=== PATIENT | male | born 1970 | race Caucasian/White ===

== ENCOUNTER 2019-03-23 09:14 | Emergency (ER) | payer OTHER, BC ==
[2019-03-23 09:58] VITALS: TEMP 98.1
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
--- NOTE | 2019-03-23 10:42 | XR ---
Lumbosacral spine HISTORY: Trauma and pain 5 views of lumbosacral spine There is a slight levoscoliosis centered at the mid lumbar spine. There is multilevel spondylosis. No evident spondylolysis. Loss of disc height is present at intervertebral levels, vacuum phenomenon pr esent at L4-5 and L5-S1. Sclerosis present in the posterior elements of the lower lumbar spine. Lumba r vertebral bodies show preserved height and bone mineralization. Atherosclerotic vascular calcificat ions present in the aortoiliac distribution. IMPRESSION: No acute fracture or subluxation. Degenerative disc disease and facet arthropathy.
[2019-03-23] MEDS ORDERED: ACET/COD 300 MG/30 MG STARTER PACK 6 TAB BTL PO STA (11:09)
[2019-03-23 11:22] VITALS: BP 112/80; PULSE 80; RESP 18
== END 2019-03-23 11:19 | disposition home or self-care (01) ==
LOC: EC 09:14
DX: M54.5 Low back pain (principal); M47.816 Spondylosis without myelopathy or radiculopathy, lumbar region; F17.200 Nicotine dependence, unspecified, uncomplicated; V48.5XXA Car driver injured in noncollision transport accident in traffic accident, initial encounter; Y93.89 Activity, other specified; Y92.410 Unspecified street and highway as the place of occurrence of the external cause
CPT/HCPCS: 72110; 99283

== ENCOUNTER → 2019-04-15 | Outpatient (CLI) | payer BC ==
[2019-04-15 11:17] LABS: HGB 16.4 gm/dL (13.0-17.5); MCH 29.5 pg (25.0-35.0); MCHC 32.8 g/dL (31.0-37.0); MCV 90.1 fL (80.0-100.0); Mean Platelet Volume 8.3; Platelet Count 292 k/uL (150-450); RBC 5.55 m/uL (4.30-5.90); RDW 12.6 % (11.5-15.5); WBC 7.5 k/uL (3.8-10.6)
[2019-04-15 16:45] LABS: African American GFR (CKD) 92.8 (60.0-200.0); Albumin 4.6 g/dL (3.80-4.90); Albumin/Globulin Ratio 2.56 (1.60-3.17); Anion Gap 6.5 mmol/L (4.00-12.00); BUN/Creat Ratio 21.82 Ratio (12.00-20.00); Calcium 9.5 mg/dL (8.7-10.3); Carbon Dioxide 24.5 mmol/L (21.6-31.8); Chol/HDL Ratio 4.4; Globulin 1.8 g/dL (1.6-3.3); LDL Cholesterol,Calculated 129.8 mg/dL (0.0-131.0); Non-African American GFR(CKD) 80.1 (60.0-200.0); Potassium 4.7 mmol/L (3.5-5.5); Total Bilirubin 0.4 mg/dL (0.2-1.2); Total Protein 6.4 g/dL (6.2-8.2); VLDL Calculation 30.2 mg/dL (5.00-40.00)
== END | disposition home or self-care (01) ==
LOC: LABWHC1 10:28
PROVIDERS: ATTEND Internal Medicine Cardiovascular Disease
DX: E78.2 Mixed hyperlipidemia (principal); I10 Essential (primary) hypertension
CPT/HCPCS: 36415; 80053; 80061; 85027

== ENCOUNTER → 2019-04-15 | Outpatient (CLI) | payer BC ==
--- NOTE | 2019-04-15 13:13 | ECHOS ---
STRESS ECHOCARDIOGRAM DATE OF SERVICE: 04/15/2019 INDICATIONS: Chest pain. MEDICATIONS: BASELINE HEART RATE: 69 BASELINE BLOOD PRESSURE: 109/61 MAXIMUM HEART RATE: 157 MAXIMUM BLOOD PRESSURE: 162/78 85% MPHR: 148 100% MPHR: 174 METS: 12.1 MAXIMUM STAGE REACHED: IV TOTAL EXERCISE TIME: 12 minutes CLINICAL INFORMATION: The patient was exercised for a total period of 12 minutes. A peak heart rate of 157 was achieved. Maximum blood pressure 162/78 mmHg was noted. The patient did not complain of any chest pain during the test. Resting EKG shows normal sinus rhythm with normal VA interval and QRS duration and normal ST-T waves. Occasional PVCs were noted. No ST-segment depression suggestive of ischemia was noted. In the postexercise period again, occasional PVCs were noted and T-wave inversions in the inferolateral leads were noted. The stress echocardiographic study shows normal wall motion and function in the resting stage. In the immediate postexercise period, there was a suggestion of apical hypokinesia and anterolateral hypokinesia. FINAL IMPRESSION: 1. This stress echocardiographic study shows evidence of suggestion of apical and anterolateral hypokinesia in the immediate postexercise period suggestive of ischemia. 2. EKG portion of the stress test shows T-wave inversions in the recovery period in the inferolateral leads suggestive of ischemia. 3. Patient's exercise tolerance is normal. 4. Patient did not complain of any chest pain during the test. MMSTEVE / WILLIAMN: [id number] /
== END | disposition home or self-care (01) ==
LOC: RADNMMAIN 08:58
PROVIDERS: ATTEND Family Medicine
DX: R94.31 Abnormal electrocardiogram [ECG] [EKG] (principal); R07.89 Other chest pain
CPT/HCPCS: 93351

== ENCOUNTER 2019-04-22 10:58 | Day surgery (SDC) | payer BC ==
[~2019-04-22 10:58] MED LIST: ALPRAZolam 0.25 MG TAB PO PRN; ALPRAZolam 0.5 MG TAB PO PRN; ASPIRIN 325 MG TAB PO STA; ATORVASTATIN 80 MG TAB PO STA; NITROGLYCERIN SL TABS 0.4 MG TAB SUBLINGUAL PRN; SODIUM CHLORIDE 0.9% 1,000 ML in EMPTY BAG 1 BAG IV ONE
[2019-04-22 11:17] VITALS: RESP 16
[2019-04-22] MEDS ORDERED: VERAPAMIL 2.5 MG/ML 2 ML AMP ONE (12:40)
[2019-04-22] MEDS ORDERED: LIDOCAINE 1% INJ 10MG/ML (20 ML MDV) ONE (12:40)
[2019-04-22] MEDS ORDERED: HEPARIN SODIUM 1,000 UN/ML (10ML VL) ONE (12:40)
[2019-04-22] MEDS ORDERED: LIDOCAINE 1% INJ 10MG/ML (20 ML MDV) SQ ONE (13:11)
[2019-04-22] MEDS ORDERED: MIDAZOLAM 2 MG/2 ML VIAL IV ONE (13:11)
[2019-04-22] MEDS ORDERED: VERAPAMIL SYRINGE (5 MG/10 ML) INTRAARTER ONE (13:13)
[2019-04-22] MEDS ORDERED: HYDROmorphone 1 MG/ML 1 ML SYRINGE ONE (13:16)
[2019-04-22] MEDS: HYDROmorphone 1 MG/ML 1 ML SYRINGE IVP ONE ×2 (13:17→13:26)
[2019-04-22] MEDS ORDERED: PRASUGREL 10 MG TAB ONE (13:25)
[2019-04-22] MEDS ORDERED: BIVALIRUDIN 250 MG in SODIUM CHLORIDE 0.9% 36 ML IV ONE (13:25)
[2019-04-22] MEDS ORDERED: BIVALIRUDIN BOLUS 250 MG/50 ML IV ONE (13:25)
[2019-04-22] MEDS ORDERED: PRASUGREL 10 MG TAB PO ONE (13:26)
[2019-04-22] MEDS ORDERED: NITROGLYCERIN 1000MCG/10ML SYRINGE INTRACORON ONE (13:29)
[2019-04-22] MEDS ORDERED: IOPAMIDOL-370 125ML BTL INJ ONE (13:39)
[2019-04-22] MEDS ORDERED: RX INFO: IV CONTRAST WAS GIVEN 1 EACH MISC MISCELLANE PRN (13:52)
[2019-04-22] MEDS ORDERED: ATROPINE SULFATE 0.1 MG/ML 10ML SYRINGE IV PRN (13:52)
[2019-04-22] MEDS ORDERED: MAG HYDROX/AL HYDROX/SIMETH 30 ML CUP PO PRN (13:52)
[2019-04-22] MEDS ORDERED: NITROGLYCERIN SL TABS 0.4 MG TAB SUBLINGUAL PRN (13:52)
[2019-04-22] MEDS ORDERED: ZOLPIDEM 5 MG TAB PO PRN (13:52)
[2019-04-22] MEDS ORDERED: SODIUM CHLORIDE 0.9% 1,000 ML IV SCH (14:00)
[2019-04-22 14:50] VITALS: BMI 27.6
[2019-04-22] MEDS: NICOTINE 21MG/24HR PATCH TRANSDERM SCH (15:52)
--- NOTE | 2019-04-22 17:27 | CC ---
CARDIAC CATHETERIZATION REPORT DATE OF PROCEDURE: 04/22/2019 PERFORMING PHYSICIAN: Asael Felix M.D. PROCEDURES PERFORMED: 1. Selective right and left coronary angiogram. 2. Left heart catheterization. 3. Successful stenting of the proximal left anterior descending artery using 4.0 x 28 mm Xience drug-eluting stent with an excellent angiographic result and reduction of stenosis from 99% to 0%. INDICATION: This is a very pleasant 48-year-old gentleman with a history of hypertension as well as dyslipidemia who was experiencing symptoms of chest discomfort and underwent a stress test that came in to be abnormal. Because of that, a heart catheterization was advised. APPROACH: Right radial artery. COMPLICATIONS: None. LEVEL OF SEDATION: Moderate, with sedation length of 37 minutes. PROCEDURE DESCRIPTION: After obtaining informed consent, the patient was brought to the cardiac laboratory manager. The right radial artery was cannulated using micropuncture technique. The micropuncture wire passed easily. Then I placed a 6-Armenian sheath in the right radial artery. After that, I did give the patient 2 mg of verapamil IA without heparin. Subsequently I did selective right and left coronary angiogram with JR4 and JL3.5 catheters. Left heart catheterization was performed using a 6-Armenian pigtail catheter. After that I did intervene on the LAD; please see separate paragraph for that. SELECTIVE CORONARY ANGIOGRAM: 1. Right coronary artery is a large-caliber vessel and it is a dominant vessel. The RCA appeared to have mild disease only in the mid portion. Distally it bifurcates into PDA and PLV branches. Both appeared to be angiographically normal. 2. The left main is angiographically normal. It bifurcates into LCX and LAD. 3. The LCX is a large-caliber vessel. It is a nondominant vessel. The LCX is angiographically normal and in the proximal portion gives rise to a large OM branch which appeared to be angiographically normal. 4. The LAD. The proximal LAD has eccentric lesion that appeared to be in the range of 50% to 60%. The mid LAD has another tight lesion that appeared to be in the range of 99.9%. The LAD distally appeared to be angiographically normal. HEMODYNAMICS: The LVEDP was 8 mmHg without significant gradient across the aortic valve. PERCUTANEOUS CORONARY INTERVENTION OF THE LEFT ANTERIOR DESCENDING CORONARY ARTERY: Anticoagulation was achieved with Angiomax with bolus and drip. Subsequently the left main was engaged using JL3.5 guide. I did wire the LAD using a Whisper wire. After that I did balloon angioplasty using a 3.0 x 12 mm balloon before I deployed a 4.0 x 28 mm Xience TERRA where the stent was positioned under fluoroscopic guidance and deployed under 14 atmospheres for 20 seconds. I post-dilated the stent using a 4.0 x 12 mm NC balloon. The following angiogram showed excellent angiographic results and the procedure was completed without any complication. CONCLUSION: 1. 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 2. Successful stenting of the LAD in the proximal portion using a 4.0 x 28 mm Xience TERRA with an excellent angiographic result. POST-PROCEDURE MANAGEMENT: 1. Dual anti-platelet therapy. 2. Risk factor modifications. 3. Follow up with the patient. MMODL / IJN: [id number] /
[2019-04-22] MEDS ORDERED: METOPROLOL SUCCINATE (ER) 25 MG TAB.ER.24H PO SCH (21:00)
[2019-04-22] MEDS ORDERED: ATORVASTATIN 80 MG TAB PO SCH (21:00)
[2019-04-23 06:45] LABS: African American GFR (CKD) >90 (>60 ml/min/1.73 sqM); Anion Gap 5 mmol/L; Blood Urea Nitrogen 14 mg/dL (9-20); Carbon Dioxide 25 mmol/L (22-30); Chloride 109 mmol/L (98-107); Glucose 94 mg/dL (74-99); Non-African American GFR(CKD) >90 (>60 ml/min/1.73 sqM); Potassium 4.5 mmol/L (3.5-5.1); Sodium 139 mmol/L (137-145)
[2019-04-23 06:46] LABS: Calcium 8.9 mg/dL (8.4-10.2)
[2019-04-23 06:51] LABS: Basophils % (A) 1 %; Eosinophils # (A) 0.1 k/uL (0-0.7); Eosinophils % (A) 2 %; HCT 44.8 % (39.0-53.0); HGB 14.8 gm/dL (13.0-17.5); Lymphocytes # (A) 2.2 k/uL (1.0-4.8); Lymphocytes % (A) 37 %; MCH 29.3 pg (25.0-35.0); MCHC 33.1 g/dL (31.0-37.0); MCV 88.3 fL (80.0-100.0); Mean Platelet Volume 8.9; Monocytes # (A) 0.3 k/uL (0-1.0); Monocytes % (A) 5 %; Neutrophils % (A) 51 %; Platelet Count 200 k/uL (150-450); RBC 5.07 m/uL (4.30-5.90); RDW 12.2 % (11.5-15.5); WBC 5.9 k/uL (3.8-10.6)
[2019-04-23] MEDS: NICOTINE 21MG/24HR PATCH TRANSDERM SCH (08:03)
[2019-04-23] MEDS ORDERED: ASPIRIN 325 MG TAB PO SCH (09:00)
[2019-04-23 09:36] VITALS: BP 124/81; PULSE 61; TEMP 98.2
--- NOTE | 2019-04-23 09:46 | DS ---
DISCHARGE SUMMARY DATE OF ADMISSION: April 22, 2019 DATE OF DISCHARGE: April 23, 2019 BRIEF HISTORY: This is a very pleasant 48-year-old gentleman who was experiencing symptoms of chest discomfort and underwent stress test and that came in to be ischemic. Because of that, a heart catheterization was advised. The heart catheterization revealed critical disease involving the mid right coronary artery and the patient underwent stenting of the RCA with an excellent angiographic result and without any complication. He is going to be discharged home today on dual antiplatelet therapy and I will follow up with the patient next week in the office. AILEEN / WILLIAMN: [id number] /
[2019-04-23] MEDS ORDERED: PRASUGREL 10 MG TAB PO SCH (12:00)
== END 2019-04-23 11:16 | disposition home or self-care (01) ==
LOC: CATHCVL 10:58 → 3SCARD 13:50 → CATHCVL 04-23 11:16
PROVIDERS: ATTEND Internal Medicine Interventional Cardiology
DX: I25.110 Atherosclerotic heart disease of native coronary artery with unstable angina pectoris (principal); I10 Essential (primary) hypertension; E78.5 Hyperlipidemia, unspecified; E78.00 Pure hypercholesterolemia, unspecified; Z82.49 Family history of ischemic heart disease and other diseases of the circulatory system; F17.210 Nicotine dependence, cigarettes, uncomplicated; Z79.899 Other long term (current) drug therapy; Z79.82 Long term (current) use of aspirin; Z79.02 Long term (current) use of antithrombotics/antiplatelets
CPT/HCPCS: 93458; 80048; 85025; C9600; C1769 ×3; C1887; C1725 ×2; C1874; C1894; S4990 ×2; J2250; J2001; J1170; J0583; Q9967

== ENCOUNTER → 2019-04-30 | Outpatient (CLI) | payer BC ==
--- NOTE | 2019-04-30 09:34 | MR ---
MRI CERVICAL SPINE: CLINICAL HISTORY: Cervicalgia per order. Headache with chronic neck pain for 20 years causing pain or weakness into left arm and fingers per patient. TECHNIQUE: Multiplanar, multisequence imaging of the cervical spine is performed without IV contrast. COMPARISON: None. FINDINGS: Coronal images show dextroconvex scoliosis centered at C5 level and reactive levoconvex sco liosis in the upper thoracic spine Sagittal images of the cervical spine show the craniocervical junc tion to appear within normal limits. The cervical and upper thoracic spinal cord is normal in calibe r and signal. Vertebral body heights are normal. [id number] multilevel disc space narrowing an d spurring mid to lower cervical spine. Subtle grade 1 anterolisthesis C6 on C7 sagittal image 11 for reference. The bone marrow signal intensity is within normal limits. Axial images show the C2-C3 level to have left-sided uncovertebral facet degenerative change causing asymmetric mild left-sided neural foraminal narrowing. Axial images at C3-C4 level show left-sided uncovertebral facet degenerative change causing asymmetri c moderate to severe left-sided neural foraminal narrowing. Axial images at C4-C5 level shows a right paracentral disc protrusion effacing anterior thecal sac up to ventral surface of spinal cord along with left-sided uncovertebral facet spurring causing advance d left-sided neural foraminal narrowing. There is mild right-sided neural foraminal narrowing noted. Axial images at C5-C6 level shows broad-based right paracentral disc protrusion effacing anterolatera l thecal sac up to ventral surface of spinal cord with uncovertebral facet spurring bilaterally causi ng advanced left and moderate to advanced right-sided neural foraminal narrowing. Axial images at C6-C7 level shows broad-based central disc protrusion effacing the anterior thecal sa c and causing moderate left-sided neural foraminal narrowing. Axial images at C7-T1 level are within normal limits. IMPRESSION: Scoliosis and multilevel degenerative changes as detailed above greatest at C5-C6 level.
== END | disposition home or self-care (01) ==
LOC: RADMRIMAIN 08:42
PROVIDERS: ATTEND Family Medicine
DX: M99.71 Connective tissue and disc stenosis of intervertebral foramina of cervical region (principal); M48.02 Spinal stenosis, cervical region; M50.223 Other cervical disc displacement at C6-C7 level; M43.12 Spondylolisthesis, cervical region; M47.892 Other spondylosis, cervical region; M41.82 Other forms of scoliosis, cervical region
CPT/HCPCS: 72141

== ENCOUNTER → 2023-12-22 | Outpatient (CLI) | payer BC ==
[2023-12-22 15:54] LABS: Basophils # (A) 0.06 X 10*3/uL (0.00-0.10); Basophils % (A) 0.9 %; Eosinophils # (A) 0.19 X 10*3/uL (0.04-0.35); Eosinophils % (A) 2.7 %; HGB 14.9 g/dL (13.0-17.0); Lymphocytes # (A) 1.88 X 10*3/uL (0.90-5.00); Lymphocytes % (A) 26.9 %; MCH 29.2 pg (27.0-32.0); MCHC 32.4 g/dL (32.0-37.0); Mean Platelet Volume 11.8 FL (9.5-12.2); Monocytes # (A) 0.61 X 10*3/uL (0.20-1.00); Monocytes % (A) 8.7 %; NRBC Per 100 WBC 0 X 10*3/uL (0.00-0.01); Neutrophils # (A) 4.23 X 10*3/uL (1.80-7.70); Neutrophils % (A) 60.7 %; Platelet Count 241 X 10*3/uL (140-440); RBC 5.11 X 10*6/uL (4.40-5.60); RDW 13.2 % (11.5-14.5); WBC 6.98 X 10*3/uL (4.50-10.00)
[2023-12-22 16:06] LABS: Appearance,Urine Clear (Clear); Bilirubin,Urine Negative (Negative); Blood,Urine Negative (Negative); Color,Urine Yellow (Yellow); Ketones,Urine Negative (Negative); Nitrite,Urine Negative (Negative); Specific Gravity,Urine 1.025 (1.001-1.030); Urobilinogen,Urine 0.2 E.U./DL
[2023-12-22 16:28] LABS: ALT 22 U/L (10-49); AST 17 U/L (14-35); Blood Urea Nitrogen 25.2 mg/dL (9.0-27.0); Calcium 9.2 mg/dL (8.7-10.3); Carbon Dioxide 21.8 mmol/L (21.6-31.8); Chloride 109 mmol/L (96-109); Chol/HDL Ratio 3.38 Ratio; Glucose 101 mg/dL (70-110); Potassium 4.8 mmol/L (3.5-5.5); Prostate Specific Antigen 0.59 ng/mL (0.000-3.500); Sodium 140 mmol/L (135-145)
== END | disposition home or self-care (01) ==
LOC: LABWHC1 08:28
PROVIDERS: ATTEND Family Medicine
CPT/HCPCS: 36415; 80048; 80061; 81003; 84153; 84450; 84460; 85025

== ENCOUNTER 2024-05-27 08:15 | Day surgery (SDC) | payer BC ==
[~2024-05-27 08:15] MED LIST changes: -ALPRAZolam 0.25 MG TAB PO PRN; -ALPRAZolam 0.5 MG TAB PO PRN; -ASPIRIN 325 MG TAB PO STA; -ATORVASTATIN 80 MG TAB PO STA; +LIDOCAINE 1% (10MG/ML) FOR IV START INTRADERMA PRN; -NITROGLYCERIN SL TABS 0.4 MG TAB SUBLINGUAL PRN; -SODIUM CHLORIDE 0.9% 1,000 ML in EMPTY BAG 1 BAG IV ONE
[2024-05-27 09:01] VITALS: RESP 16; TEMP 98.7
[2024-05-27] MEDS: LACTATED RINGERS 1,000 ML IV SCH (09:04)
[2024-05-27] MEDS: IV FLUID CONTINUATION 1,000 ML IV ONE (09:04)
[2024-05-27] MEDS ORDERED: PROPOFOL 10 MG/ML 20 ML VIAL IV ONE (09:38)
--- NOTE | 2024-05-27 10:04 | P.PCN ---
Date of Procedure: 05/27/24 Procedure(s) Performed: BRIEF HISTORY: Patient is a 53-year-old pleasant white male scheduled for an elective colonoscopy as a part of screening for colon cancer. PROCEDURE PERFORMED: Colonoscopy. PREOPERATIVE DIAGNOSIS: Screening for colon cancer. IV sedation per Anesthesia. PROCEDURE: After informed consent was obtained, the patient, was brought into the endoscopy unit. IV sedation was administered by Anesthesia under continuous monitoring. Digital rectal examination was normal. Initially the Olympus CF-160 flexible video colonoscope was then inserted in the rectum, gradually advanced into the cecum without any difficulty. Careful examination was performed as the scope was gradually being withdrawn. Ileocecal valve and the appendiceal orifice were visualized and appeared normal. Prep was excellent. Mucosa of the cecum, ascending colon, transverse colon, descending colon, sigmoid colon, and rectum appeared normal. Retroflexion was performed in the rectum and no lesions were seen. The patient tolerated the procedure well. IMPRESSION: Normal-appearing colon from rectum to cecum with no evidence of colorectal neoplasia. RECOMMENDATIONS: Findings of this examination were discussed with the patient as well as the family. He was advised to have a repeat screening colonoscopy in 10 years..
[2024-05-27 10:20] VITALS: BP 116/68; PULSE 61
== END 2024-05-27 10:37 | disposition home or self-care (01) ==
LOC: ORWHC2ENDO 08:15
PROVIDERS: ATTEND Internal Medicine Gastroenterology
DX: Z12.11 Encounter for screening for malignant neoplasm of colon (principal); I10 Essential (primary) hypertension; E78.5 Hyperlipidemia, unspecified; I25.2 Old myocardial infarction; G47.33 Obstructive sleep apnea (adult) (pediatric); F17.210 Nicotine dependence, cigarettes, uncomplicated; Z79.899 Other long term (current) drug therapy; Z95.5 Presence of coronary angioplasty implant and graft
CPT/HCPCS: 45378; J2704

== ENCOUNTER → 2024-09-07 | Outpatient (CLI) | payer BC ==
--- NOTE | 2024-09-07 17:29 | CT ---
EXAMINATION TYPE: CT urogram wo/w con DATE OF EXAM: 09/07/2024 5:15 PM COMPARISON: None CLINICAL INDICATION: Male, 53 years old with history of N13.9 Obstructive and reflux; PHH, Urinary ob struction since Thursday, no hx of kidney stones TECHNIQUE: Urogram with imaging of the abdomen and pelvis. Coronal and sagittal reformats were performed. 2D and 3D reconstructions are performed to assist visualization of the urinary tract on a separate workstat ion. Contrast used:100 ml mL of Isovue 370 with IV Contrast, Oral contrast used: None. CT DLP: 2947.1 mGycm, Automated exposure control for dose reduction was used. FINDINGS: LOWER CHEST: No significant findings. GENITOURINARY: RIGHT KIDNEY AND URETER: No calculi. No hydronephrosis or hydroureter. No renal mass or other lesions . No urothelial lesions: no filling defect, dilation, stricture or wall thickening. LEFT KIDNEY AND URETER: Mild Fat stranding changes are seen in the left kidney. Mild dilation of the renal pelvis and calyces. No calculi. No renal mass or other lesions. No urothelial lesions: no fill ing defect, dilation, stricture or wall thickening. URINARY BLADDER: REPRODUCTIVE: Prostate is enlarged in size measuring 5.7 cm in transverse dimension. ABDOMEN LIVER: Unremarkable GALLBLADDER AND BILE DUCTS: Unremarkable. PANCREAS: Unremarkable. SPLEEN: Unremarkable. ADRENAL GLANDS: Unremarkable. STOMACH AND BOWEL: . No evidence of bowel obstruction. PERITONEUM: No evidence of pneumoperitoneum, free fluid, or adenopathy. VASCULATURE: Mild atherosclerotic calcifications are present throughout the abdominal aorta and its b ranches. No evidence of aortic aneurysm. MUSCULOSKELETAL: No acute osseous abnormalities. Mild disc degeneration changes are present throughou t the thoracolumbar spine. LYMPH NODES: No gross evidence for lymphadenopathy. SOFT TISSUE/ABDOMINAL WALL: Right fat containing hernia. IMPRESSION: 1. Mild Fat stranding changes around the left kidney and renal sinus and correlation with a mildly di lated renal pelvis/. Correlate for recently passed stone. Correlate for ascending infection. 2. No evidence of renal/urothelial neoplasm. 3. Prostatomegaly, correlate with serum PSA. [facility], , 09/07/2024 5:27 PM
== END | disposition home or self-care (01) ==
LOC: RADCTMAIN 15:50
PROVIDERS: ATTEND Family Medicine
DX: N40.1 Benign prostatic hyperplasia with lower urinary tract symptoms (principal); N13.9 Obstructive and reflux uropathy, unspecified
CPT/HCPCS: 74178; 74400; Q9967

== ENCOUNTER → 2024-09-07 | Outpatient (CLI) | payer BC ==
[2024-09-07 16:13] LABS: Basophils # (A) 0.03 10*3/uL (0.00-0.10); Basophils % (A) 0.2 %; Eosinophils # (A) 0.07 10*3/uL (0.04-0.35); Eosinophils % (A) 0.5 %; HCT 41.0 % (39.6-50.0); HGB 14.0 g/dL (13.0-17.0); Lymphocytes # (A) 1.87 10*3/uL (0.90-5.00); Lymphocytes % (A) 12.0 %; MCH 30.6 pg (27.0-32.0); MCHC 34.1 g/dL (32.0-37.0); MCV 89.5 fL (80.0-97.0); Monocytes # (A) 1.07 10*3/uL (0.20-1.00); Monocytes % (A) 6.9 %; Neutrophils # (A) 12.42 10*3/uL (1.80-7.70); Neutrophils % (A) 80.0 %; Platelet Count 212 10*3/uL (140-440); RBC 4.58 10*6/uL (4.40-5.60); RDW 13.7 % (11.5-14.5); WBC 15.52 10*3/uL (4.50-10.00)
[2024-09-07 16:26] LABS: ALT 23 U/L (4-49); AST 19 U/L (17-59); African American GFR (CKD) >90 (>60 ml/min/1.73 sqM); Albumin 4.0 g/dL (3.5-5.0); Albumin/Globulin Ratio 1.5; Alkaline Phosphatase 75 U/L (38-126); Anion Gap 11 mmol/L; Blood Urea Nitrogen 14 mg/dL (9-20); Calcium 9.3 mg/dL (8.4-10.2); Carbon Dioxide 23 mmol/L (22-30); Chloride 103 mmol/L (98-107); Globulin 2.6 g/dL; Glucose 113 mg/dL (74-99); Non-African American GFR(CKD) >90 (>60 ml/min/1.73 sqM); Potassium 4.8 mmol/L (3.5-5.1); Sodium 137 mmol/L (137-145); Total Protein 6.6 g/dL (6.3-8.2)
== END | disposition home or self-care (01) ==
LOC: LABWHC1 15:47
PROVIDERS: ATTEND Family Medicine
DX: R10.9 Unspecified abdominal pain (principal)
CPT/HCPCS: 36415; 80053; 85025

== ENCOUNTER → 2024-09-09 | Outpatient (CLI) | payer BC ==
--- NOTE | 2024-09-09 12:08 | US ---
EXAMINATION TYPE: US bladder DATE OF EXAM: 09/09/2024 COMPARISON: NONE CLINICAL INDICATION: Male, 53 years old with history of N28.89 OTHER SPECIFIED DISORDERS OF KIDNEY AN D URE; recent passing of left renal stone, gross hematuria, UTI, assess post void TECHNIQUE: Bladder scan grayscale and color Doppler imaging of the urinary bladder. FINDINGS: Urinary bladder grayscale imaging is within normal limits. Normal post void of 3.5ml, no ab normality seen IMPRESSION: No significant postvoid residual. [facility], , 09/09/2024 12:06 PM
[2024-09-09 15:09] LABS: Basophils # (A) 0.05 X 10*3/uL (0.00-0.10); Basophils % (A) 0.8 %; Eosinophils # (A) 0.16 X 10*3/uL (0.04-0.35); Eosinophils % (A) 2.5 %; HCT 42.6 % (39.6-50.0); HGB 13.6 g/dL (13.0-17.0); Immature Grans, Automated 0.30 %; Lymphocytes # (A) 1.59 X 10*3/uL (0.90-5.00); Lymphocytes % (A) 24.4 %; MCH 29.0 pg (27.0-32.0); MCHC 31.9 g/dL (32.0-37.0); MCV 90.8 FL (80.0-97.0); Monocytes # (A) 0.89 X 10*3/uL (0.20-1.00); Monocytes % (A) 13.7 %; NRBC Per 100 WBC 0 X 10*3/uL (0.00-0.01); Neutrophils # (A) 3.80 X 10*3/uL (1.80-7.70); Neutrophils % (A) 58.3 %; Platelet Count 279 X 10*3/uL (140-440); RBC 4.69 X 10*6/uL (4.40-5.60); RDW 13.7 % (11.5-14.5); WBC 6.51 X 10*3/uL (4.50-10.00)
[2024-09-09 15:34] LABS: Anion Gap 10.70 mmol/L (4.00-12.00); BUN/Creat Ratio 12.90 Ratio (12.00-20.00); Blood Urea Nitrogen 12.9 mg/dL (9.0-27.0); Calcium 8.5 mg/dL (8.7-10.3); Carbon Dioxide 22.3 mmol/L (21.6-31.8); Chloride 106 mmol/L (96-109); Glucose 100 mg/dL (70-110); Potassium 5.1 mmol/L (3.5-5.5); Prostate Specific Antigen 54.00 ng/mL (0.000-3.500); Sodium 139 mmol/L (135-145)
== END | disposition home or self-care (01) ==
LOC: RADUSWWP 09:52
PROVIDERS: ATTEND Family Medicine
DX: N28.89 Other specified disorders of kidney and ureter (principal); N39.0 Urinary tract infection, site not specified; R31.0 Gross hematuria; D72.828 Other elevated white blood cell count
CPT/HCPCS: 76857; 80048; 84153; 85025

== ENCOUNTER → 2024-09-14 | Outpatient (CLI) | payer BC ==
[2024-09-14 11:46] LABS: Bilirubin,Urine Negative (Negative); Blood,Urine Negative (Negative); Color,Urine Light Yellow; Glucose,Urine (UA) Negative (Negative); Ketones,Urine Negative (Negative); Leukocyte Esterase,Urine Negative (Negative); Nitrite,Urine Negative (Negative); PH, Urine 6.0 (5.0-8.0); Protein,Urine Negative (Negative); Specific Gravity,Urine 1.021 (1.001-1.035); Urobilinogen,Urine <2.0 mg/dL (<2.0)
[2024-09-14 15:47] LABS: HCT 44.4 % (39.6-50.0); HGB 14.3 g/dL (13.0-17.0); MCH 29.0 pg (27.0-32.0); MCHC 32.2 g/dL (32.0-37.0); MCV 90.1 FL (80.0-97.0); NRBC Per 100 WBC 0 X 10*3/uL (0.00-0.01); Platelet Count 400 X 10*3/uL (140-440); RBC 4.93 X 10*6/uL (4.40-5.60); RDW 13.8 % (11.5-14.5); WBC 6.02 X 10*3/uL (4.50-10.00)
[2024-09-14 16:02] LABS: Anion Gap 10.00 mmol/L (4.00-12.00); BUN/Creat Ratio 16.80 Ratio (12.00-20.00); Blood Urea Nitrogen 16.8 mg/dL (9.0-27.0); Calcium 9.1 mg/dL (8.7-10.3); Carbon Dioxide 23.0 mmol/L (21.6-31.8); Chloride 107 mmol/L (96-109); Glucose 112 mg/dL (70-110); Potassium 5.0 mmol/L (3.5-5.5); Sodium 140 mmol/L (135-145)
[2024-09-14 16:17] LABS: Prostate Specific Antigen 16.40 ng/mL (0.000-3.500)
[2024-09-14 16:52] LABS: Basophils # (A) 0.06 X 10*3/uL (0.00-0.10); Basophils % (A) 1.0 %; Eosinophils # (A) 0.10 X 10*3/uL (0.04-0.35); Eosinophils % (A) 1.7 %; Immature Grans, Automated 0.70 %; Lymphocytes # (A) 2.11 X 10*3/uL (0.90-5.00); Lymphocytes % (A) 35.0 %; Monocytes # (A) 0.41 X 10*3/uL (0.20-1.00); Monocytes % (A) 6.8 %; Neutrophils # (A) 3.30 X 10*3/uL (1.80-7.70); Neutrophils % (A) 54.8 %
== END | disposition home or self-care (01) ==
LOC: LABWHC1 11:02
PROVIDERS: ATTEND Family Medicine
DX: N41.0 Acute prostatitis (principal)
CPT/HCPCS: 36415; 80048; 81003; 84153; 85025

== ENCOUNTER → 2024-09-21 | Outpatient (CLI) | payer BC | END | disposition home or self-care (01) | LOC: LABWHC1 16:08 | PROVIDERS: ATTEND Family Medicine | DX: R97.20 Elevated prostate specific antigen [PSA] (principal) | CPT/HCPCS: 36415; 84153 ==